=== PATIENT | female | born 1970 | race Hispanic/Latino ===

== ENCOUNTER 2021-06-07 15:01 | Emergency (ER) | payer SELFPAY ==
--- NOTE | 2021-06-07 16:50 | ER ---
Nurse's Notes [facility] Name: Karly Milton Age: 51 yrs Sex: Female : 1970 Arrival Date: 06/07/2021 Time: 15:08 Bed Waiting Private MD: Diagnosis: ED Course: 06/07 15:08 Patient arrived in ED. mr 16:50 Dante Gracia MD is Attending Physician. aa5 Administered Medications: No medications were administered Outcome: 16:50 Patient left the ED. aa5 Signatures: Shelia Castillo Audri, RN RN aa5
== END 2021-06-07 16:50 | disposition left against medical advice (07) ==
LOC: ER 15:01
DX: Z02.9 Encounter for administrative examinations, unspecified (principal)

== ENCOUNTER 2022-08-22 16:04 | Emergency (ER) | payer OTHER ==
--- OUTSIDE RECORDS SUMMARY | 2022-08-22 16:14 | XMS REPORT | Continuity of Care Document ---
:1970 Author Organization [facility] t Address [address] [place] [address] Care Team Providers Name Role Phone SYSTEM, PCP NOT IN Primary Care Physician Unavailable Rocio Petersen MD Attending Clinician ROCIO PETERSEN Attending Clinician Unavailable BRITTANEY HARRIS Attending Clinician Unavailable Therapy, Clc Covid Infusion Attending Clinician Unavailable Brittaney Harris MD Attending Clinician Doctor Unassigned, [place] Attending Clinician Unavailable Payers Payer Name Policy Type Policy Number Effective Date Expiration Date S [employer] [id number] 2017 NON-CONTRACT 00:00:00 GENERIC Problems Condition Condition Condition Status Onset Resolution Last Treating Co mments Source Name Details Category Date Date Treatment Clinician Date Normal Normal Disease Active Univers delivery delivery -14 ity of 00:00: [address] Allergies, Adverse Reactions, Alerts Allergy Allergy Status Severity Reaction(s) Onset Inactive Treating Comm ents Source Name Type Date Date Clinician NO KNOWN Drug Active Univers ALLERGIE Class ity of [facility] Social History Social Habit Start Date Stop Date Quantity Comments Source Exposure to 2022-08-11 2022-08-21 Not sure University SARS-CoV-2 00:00:00 10:02:00 [facility] (event) [place] Tobacco use and 2018-03-12 2018-03-12 Smokeless tobacco Un iversity of exposure 00:00:00 00:00:[address] [facility] Sex Assigned At [birth year] Universit y of 00:00:00 00:00:[address] [facility] Smoking Status Start Date Stop Date Source Never smoked tobacco [facility] Medications Ordered Filled Start Stop Current Ordering Indication Dosage Frequency Signature Comments Components Source Medication Medication Date Date Medication? Clinician (SIG) Name Name ketorolac 2021-10 No 15mg 15 mg, Unive rs (TORADOL) 10-21 Slow IV ity of injection 18:30: 17:46 [place], [place] 15 mg 00 :00 ONCE, 1 Medical dose, On Branch 08/21/22 at 1230, Routine HYDROcodone 2021-10 No 1{tbl} 1 tablet, Univers -acetaminop 10-21 Oral, ity of hen (NORCO 17:00: 16:40 ONCE, 1 [place] 5) 5-325 mg 00 :00 dose, On Medi yareli tablet 1 Fri Branch tablet 08/21/22 at 1100, Routine diphenhydrA 2021-10 No 25mg 25 mg, Uni vers MINE 10-21 Oral, ity of (BENADRYL) 16:15: 16:40 ONCE, 1 [place] tablet 25 00 :00 dose, On Medica l mg Fri Branch 08/21/22 at 1015, MANNY metoclopram 2021-10- No 10mg 10 mg, Uni vers kin HCl 10-21 Slow IV ity of (REGLAN) 16:15: 16:40 [place], [place] injection 00 :00 ONCE, 1 Medical 10 mg dose, On Branch 08/21/22 at 1015, MANNY casirivimab 2020- No [id number] 1200mg 1,200 mg, Univers -imdevimab 06-11 IV ity of 1200 mg in 18:00: 17:00 Infusion, [place] 60 mL NS 00 :00 ONCE, Medical MINI-BAG Administer Branc h over 20 Minutes, 06/11/21 at 1300, For 1 dose
Ad beauty consultant as an IV infusion via pump or gravity through an intravenou s line containing a sterile, in-line or add-on 0.2-micron polyethers ulfone (PES) filter.&nb sp;Stable 36 hours refrigerat ed; 4 hours at room temperatur e. &nbs p;
SULFAMETHOX 2018-0 Yes Take by Uni vers AZOLE/TRIME 6-09 mouth. ity of THOPRIM 18:39: [place] (BACTRIM DS 54 Medical ORAL) Branch doxycycline 2018-0 Yes 100mg Take 100 U nivers (VIBRA-TABS 6-09 mg by ity of ) 100 mg 18:39: mouth 2 [place] tablet 54 (two) Medical times Branch daily. SULFAMETHOX 2018-0 Yes Take by Uni vers AZOLE/TRIME 6-09 mouth. ity of [place] 13:39: [place] (BACTRIM DS 54 Medical ORAL) Branch doxycycline 2018-0 Yes 100mg Take 100 U nivers (VIBRA-TABS 6-09 mg by ity of ) 100 mg 13:39: mouth 2 [place] tablet 54 (two) Medical times Branch daily. SULFAMETHOX 2018-0 Yes Take by Uni vers AZOLE/TRIME 6-09 mouth. ity of THOPRIM 13:39: [place] (BACTRIM DS 54 Medical ORAL) Branch doxycycline 2018-0 Yes 100mg Take 100 U nivers (VIBRA-TABS 6-09 mg by ity of ) 100 mg 13:39: mouth 2 [place] tablet 54 (two) Medical times Branch daily. SULFAMETHOX 2018-0 Yes Take by Uni vers AZOLE/TRIME 6-09 mouth. ity of THOPRIM 13:39: [place] (BACTRIM DS 54 Medical ORAL) Branch doxycycline 2017-0 Yes 100mg Take 100 U nivers (VIBRA-TABS 6-09 mg by ity of ) 100 mg 13:39: mouth 2 [place] tablet 54 (two) Medical times Branch daily. acetaminoph 2018-0 Yes [id number] 10/05 - Univers en-codeine 6-09 tab Every ity of 300-30 mg 00:00: 4hrs as [place] tablet 00 needed for Medical pain or Branch cough requiring narcotic acetaminoph 2018-0 Yes [id number] 10/05 - Univers en-codeine 6-09 tab Every ity of 300-30 mg 00:00: 4hrs as [place] tablet 00 needed for Medical pain or Branch cough requiring narcotic acetaminoph 2018-0 Yes [id number] 10/05 - Univers en-codeine 6-09 tab Every ity of 300-30 mg 00:00: 4hrs as [place] tablet 00 needed for Medical pain or Branch cough requiring narcotic acetaminoph 2018-0 Yes [id number] 10/05 - Univers en-codeine 6-09 tab Every ity of 300-30 mg 00:00: 4hrs as [place] tablet 00 needed for Medical pain or Branch cough requiring narcotic dicyclomine 2018-0 Yes 20mg Take 1 Univ ers (BENTYL) 20 1-30 tablet by ity of mg tablet 00:00: mouth (four) Medical times Branch daily. ondansetron 2018-0 Yes 8mg Take 1 Univ ers (ZOFRAN, 1-30 tablet by ity of HYDROCHLORI 00:00: mouth [place],) 8 mg 00 every 8 Medical tablet (eight) Branch hours as needed for Nausea and Vomiting (N/V). dicyclomine 2018-0 Yes 20mg Take 1 Univ ers (BENTYL) 20 1-30 tablet by ity of mg tablet 00:00: mouth (four) Medical times Branch daily. ondansetron 2018-0 Yes 8mg Take 1 Univ ers (ZOFRAN, 1-30 tablet by ity of HYDROCHLORI 00:00: mouth [place] DE,) 8 mg 00 every 8 Medical tablet (eight) Branch hours as needed for Nausea and Vomiting (N/V). dicyclomine 2018-0 Yes 20mg Take 1 Univ ers (BENTYL) 20 1-30 tablet by ity of mg tablet 00:00: mouth (four) Medical times Branch daily. ondansetron 2018-0 Yes 8mg Take 1 Univ ers (ZOFRAN, 1-30 tablet by ity of HYDROCHLORI 00:00: mouth [place] DE,) 8 mg 00 every 8 Medical tablet (eight) Branch hours as needed for Nausea and Vomiting (N/V). dicyclomine 2018-0 Yes 20mg Take 1 Univ ers (BENTYL) 20 1-30 tablet by ity of mg tablet 00:00: mouth (four) Medical times Branch daily. ondansetron 2018-0 Yes 8mg Take 1 Univ ers (ZOFRAN, 1-30 tablet by ity of HYDROCHLORI 00:00: mouth [place],) 8 mg 00 every 8 Medical tablet (eight) Branch hours as needed for Nausea and Vomiting (N/V). Vital Signs Vital Name Observation Time Observation Value Comments Source Systolic blood 2022-08-21 18:00:00 159 mm[Hg] Univer sity of pressure [place] [facility] Diastolic blood 2022-08-21 18:00:00 84 mm[Hg] Unive rsity of pressure [place] [facility] [place] Heart rate 2022-08-21 18:00:00 64 /min Universi ty of [place] [facility] [place] Respiratory rate 2022-08-21 18:00:00 13 /min Univ ersity of [facility] Oxygen saturation in 2022-08-21 18:00:00 96 /min University of Arterial blood by [facility] Pulse oximetry Branch Body temperature 2022-08-21 16:05:00 37 Kimi [facility] ersity of [place] [facility] [place] Body height 2022-08-21 16:05:00 160 cm Universi ty of [place] [facility] [place] Body weight 2022-08-21 16:05:[address] [facility] BMI 2022-08-21 16:05:00 41.63 kg/m2 Universi ty of [place] [facility] [place] Systolic blood 2021-06-11 17:48:00 123 mm[Hg] Univer sity of pressure [place] [facility] Diastolic blood 2021-06-11 17:48:00 86 mm[Hg] Unive rsity of pressure [place] [facility] [place] Heart rate 2021-06-11 17:48:00 68 /min Universi ty of [place] [facility] [place] Body temperature 2021-06-11 17:48:00 37.67 Kimi [facility] ersity of [place] [facility] [place] Respiratory rate 2021-06-11 17:48:00 20 /min [facility] ersity of [place] [facility] [place] Oxygen saturation in 2021-06-11 17:48:00 95 /min University of Arterial blood by [place] [employer] [facility] Pulse oximetry Branch Body height 2021-06-11 16:36:00 160 cm Universi ty of [place] [facility] Body weight 2021-06-11 16:36:00 104.327 kg Universi ty of [place] [facility] BMI 2021-06-11 16:36:00 40.74 kg/m2 Universi ty of [place] [facility] [place] Procedures Procedure Date / Time Performed Performing Clinician Sourerika e CT HEAD WO CONTRAST 2022-08-21 17:03:00 Rocio Petersen [facility] sit of [facility] CONSENT/REFUSAL FOR 2022-08-21 15:55:24 Doctor Unassigned, No Un [facility]ity of [place] DIAGNOSIS AND Name Medical Branch TREATMENT CONSENT/REFUSAL FOR 2021-06-11 05:01:00 Doctor Unassigned, No Un i[facility]ity of [place] DIAGNOSIS AND Name Medical Branch TREATMENT Encounters Start End Encounter Admission Attending Care Care Encounter Source Date/Time Date/Time Type Type Clinicians Facility Department ID 2022-08-21 2022-08-21 [id number] Univers 10:17:00 13:19:00 Rocio S [place] [id number] i ty [id number] [place] [id number] [facility] 084 Branch 2022-08-21 2022-08-21 [facility] [id number] Univers 10:17:00 13:19:[address] [facility] 2021-06-11 2021-06-11 Outpatient [facility] [id number] Univers 13:30:00 13:30:[id number] [facility] 2021-06-11 2021-06-11 Outpatient R LEONORA [facility] [id number] Univers 13:30:00 13:30:[address] [facility] 2021-06-11 2021-06-11 Nurse Therapy, [facility] Covid Infusion [facility] [id number] Univers 11:35:00 12:35:00 Visit Brittaney Harris [facility] [id number] ity [id number] [id number] [facility] 053 Branch Office Building 2021-06-11 2021-06-11 Orders Doctor AIRAM [id number] Univers 00:00:00 00:00:00 Only Unassigned, MICHAEL [id number] ity of [place] [facility] [id number] [place] [phone] [facility] 009 Branch Results This patient has no known results.
[2022-08-22] MEDS ORDERED: METOCLOPRAMIDE 10 MG/2mL INJ ONE (17:07)
[2022-08-22] MEDS ORDERED: ACETAMINOPHEN 500 MG TAB ONE (17:08)
[2022-08-22] MEDS ORDERED: DIPHENHYDRAMINE 50 MG/ML VIAL ONE (17:08)
[2022-08-22] MEDS ORDERED: LIDOCAINE VISCOUS 2% SOLN 15 ML UDC ONE (17:09)
[2022-08-22] MEDS ORDERED: MAGNES/ALUMIN/SIMET 30ML UCUP ONE (17:09)
[2022-08-22] MEDS ORDERED: ONDANSETRON 4 MG/2 ML VIAL ONE (18:00)
--- NOTE | 2022-08-22 18:24 | RAD REPORT ---
EXAM DESCRIPTION: CT - Head Brain Wo Cont - 08/22/2022 6:10 pm CLINICAL HISTORY: Headache COMPARISON: None TECHNIQUE: Computed axial tomography of the head was obtained. IV contrast was not requested. All CT scans are performed using dose optimization technique as appropriate and may include automated exposure control or mA/KV adjustment according to patient size. FINDINGS: An intracranial bleed is not seen . The ventricles are normal in caliber. No extra-axial fluid collection is noted. No significant hypodensity within the brain. Empty sella turcica Fluid within the sinuses/ mastoids is not seen. IMPRESSION: No acute intracranial abnormality is seen. If patient's symptoms persist MRI of the bra in would be recommended.
[2022-08-22 18:27] LABS: Absolute Lymphocytes (CBC) 1.7 K/uL (0.7-4.9); Hematocrit 42.1 % (36.0-45.0); Lymphocytes % 13.4 % (15.3-44.8); MPV 11.3 fL (7.6-11.3); RBC Red Blood Cell Count 4.57 M/uL (3.86-4.86)
[2022-08-22 18:55] LABS: Albumin 4.1 g/dL (3.4-5.0); Bilirubin Total 0.4 mg/dL (0.2-1.0); Potassium 3.5 mmol/L (3.5-5.1); Protein, Total 7.8 g/dL (6.4-8.2); Troponin High Sensitivity 5.7 pg/mL (<58.9)
[2022-08-22 19:57] LABS: Urine Blood Negative (Negative); Urine Glucose Negative (Negative); Urine Protein Negative (Negative); Urine Specific Gravity 1.025 (1.005-1.030)
[2022-08-22 20:30] LABS: Urine Crystals Unidentified Few /HPF (None Seen); Urine Mucus 1+ /HPF (None Seen); Urine RBC <5 /HPF (None Seen)
--- NOTE | 2022-08-22 20:45 | ER ---
Nurse's Notes [facility] [place] Name: Karly Milton Age: 52 yrs Sex: Female : 1970 Arrival Date: 08/22/2022 Time: 16:09 Bed 9 Private MD: Diagnosis: Headache;Nausea with vomiting, unspecified Presentation: 08/22 16:12 Chief complaint: N/V, sore throat, and headache x 1 week. Not tolerating fluids. hb Coronavirus screen: Client presents with at least one sign or symptom that may indicate coronavirus-19. Standard/surgical mask placed on the client. Provider contacted for isolation considerations. Ebola Screen: No symptoms or risks identified at this time. Initial Sepsis Screen: Does the patient meet any 2 criteria? No. Patient's initial sepsis screen is negative. Does the patient have a suspected source of infection? No. Patient's initial sepsis screen is negative. Risk Assessment: Do you want to hurt yourself or someone else? Patient reports no desire to harm self or others. Onset of symptoms was August 16, 2022. 16:12 Method Of Arrival: Ambulatory 16:12 Acuity: ROHITH 3 hb CREDIT HISTORIAN: 21:26 LMP N/A - Post-menopause eh3 Historical: - Allergies: 16:14 No Known Allergies; hb - Immunization history:: Adult Immunizations up to date. - Family history:: not pertinent. - Social history:: Smoking status: Patient denies any tobacco usage or history of. Screenin:00 Abuse screen: Denies threats or abuse. Denies injuries from another. Nutritional eh3 screening: No deficits noted. Tuberculosis screening: No symptoms or risk factors identified. Fall Risk None identified. Assessment: 17:00 General: Appears distressed, uncomfortable, Behavior is cooperative, appropriate for eh3 age, crying. Pain: Complains of pain in top of head and right yazdanism Pain does not radiate. Pain currently is 9 out of 10 on a pain scale. Quality of pain is described as aching, sharp, Pain began 1 week ago Is continuous, Alleviated by nothing. Neuro: Level of Consciousness is awake, alert, obeys commands, Oriented to person, place, time, situation. Cardiovascular: Capillary refill < 3 seconds Patient's skin is warm and dry. Respiratory: Airway is patent Respiratory effort is even, unlabored, Respiratory pattern is regular, symmetrical. GI: Abdomen is round Pt is actively vomiting bile, Bowel sounds present X 4 quads. Reports lower abdominal pain, upper abdominal pain, cramping, intolerance of fluids, intolerance of food, nausea, vomiting. : No signs and/or symptoms were reported regarding the genitourinary system. EENT: No signs and/or symptoms were reported regarding the EENT system. Derm: No signs and/or symptoms reported regarding the dermatologic system. Musculoskeletal: No signs and/or symptoms reported regarding the musculoskeletal system. 18:00 Reassessment: Patient and/or family updated on plan of care and expected duration. Pain eh3 level reassessed. Patient is alert, oriented x 3, equal unlabored respirations, skin warm/dry/pink. 19:00 Reassessment: Patient and/or family updated on plan of care and expected duration. Pain eh3 level reassessed. Patient is alert, oriented x 3, equal unlabored respirations, skin warm/dry/pink. 20:00 Reassessment: Patient and/or family updated on plan of care and expected duration. Pain hb level reassessed. Patient is alert, oriented x 3, equal unlabored respirations, skin warm/dry/pink. 21:00 Reassessment: Patient and/or family updated on plan of care and expected duration. Pain eh3 level reassessed. Patient is alert, oriented x 3, equal unlabored respirations, skin warm/dry/pink. Vital Signs: 16:12 BP 173 / 115; Pulse 98; Resp 18; Temp 98.4; Pulse Ox 100% on R/A; Weight 106.59 kg; hb Height 5 ft. 3 in. (160.02 cm); Pain 8/10; 18:00 BP 144 / 89; Pulse 94; Resp 18; Pulse Ox 99% on R/A; eh3 19:00 BP 133 / 71; Pulse 92; Resp 18; Pulse Ox 98% on R/A; eh3 20:00 BP 134 / 80; Pulse 80; Resp 18; Pulse Ox 97% on R/A; hb 21:00 BP 134 / 78; Pulse 84; Resp 16; Pulse Ox 98% on R/A; eh3 16:12 Body Mass Index 41.63 (106.59 kg, 160.02 cm) hb ED Course: 16:09 Patient arrived in ED. [email or web address] 16:09 Deyvi Hernandez MD is Attending Physician. rt 16:14 Triage completed. hb 16:46 Bhavna Viveros, KIP is Primary Nurse. eh3 17:00 Patient has correct armband on for positive identification. Bed in low position. Call eh3 light in reach. Side rails up X2. youth nutritional monitor on. Pulse ox on. Door closed. Noise minimized. Warm blanket given. 17:55 Troponin High Sensitivity Sent. eh3 17:55 CMP Sent. eh3 17:55 Lipase Sent. eh3 17:55 CBC with Diff Sent. eh3 18:12 CT Head Brain wo Cont In Process Unspecified. EDMS 20:28 Attending Physician role handed off by Deyvi Hernandez MD sd2 20:28 Ramandeep Cueva MD is Attending Physician. sd2 20:48 Diet: Patient given water. Tolerated well. hb 21:26 No provider procedures requiring assistance completed. IV discontinued, intact, eh3 bleeding controlled, No redness/swelling at site. Pressure dressing applied. 21:26 Arm band placed on. eh3 Administered Medications: 17:35 Drug: Reglan (metoCLOPramide) 10 mg Route: IVP; Site: left antecubital; eh3 20:35 Follow up: Response: Nausea unchanged hb 17:35 Drug: Benadryl (diphenhydrAMINE) 25 mg Route: IVP; Site: left antecubital; eh3 20:35 Follow up: Response: No adverse reaction hb 17:35 Drug: GI Cocktail without - (Maalox Suspension 30 ml, Lidocaine Liquid 2 % 15 eh3 ml) Route: PO; 20:34 Follow up: Response: No adverse reaction hb 18:04 Drug: Zofran (Ondansetron) 4 mg Route: IVP; Site: left antecubital; eh3 21:06 Follow up: Response: Nausea unchanged hb 19:53 Drug: Tylenol 1000 mg Route: PO; eh3 21:06 Follow up: Response: No adverse reaction hb 21:00 Drug: Ketorolac 15 mg Route: IVP; Site: left antecubital; hb 21:27 Follow up: Response: Pain is decreased eh3 21:00 Drug: Decadron - Dexamethasone 10 mg Route: IVP; Site: left antecubital; hb 21:27 Follow up: Response: Pain is decreased eh3 Medication: 21:26 VIS not applicable for this client. eh3 Outcome: 20:45 Discharge ordered by . sd2 21:26 Discharged to home ambulatory, with family. eh3 21:26 Condition: stable 21:26 Discharge instructions given to patient, family, Instructed on discharge instructions, follow up and referral plans. medication usage, Demonstrated understanding of instructions, follow-up care, medications, Prescriptions given X 2. 21:26 Patient left the ED. eh3 Signatures: Dispatcher [employer] EDMS Mar Pulliam, RN RN Kasey Henrandez rg4 Bhavna Viveros RN RN eh3 Ramandeep Cueva MD MD sd2 Deyvi Hernandez MD MD rt
--- NOTE | 2022-08-22 20:45 | EDPHYS ---
Physician Documentation [facility] Name: Karly Milton Age: 52 yrs Sex: Female : 1970 Arrival Date: 08/22/2022 Time: 16:09 Bed 9 Private MD: ED Physician Ramandeep Cueva HPI: 08/22 16:26 This 52 yrs old Female presents to ER via Ambulatory with complaints of rt Nausea/Vomiting, Headache. 16:26 Onset: The symptoms/episode began/occurred 1 week(s) ago. The symptoms are aggravated rt by nothing. The symptoms are alleviated by nothing. Associated signs and symptoms: Pertinent negatives: abdominal pain. Severity of symptoms: At their worst the symptoms were moderate. Presents to the ED with posterior headache that started about 1 week ago. She states that this occurred after she fell and hit her head. She has a constant pain since then, aching nature, nonradiating. Denies aggravating or alleviating factors. She states that ibuprofen did not improve her symptoms. The patient went to her doctor today, stated that she was hypertensive, gave her captopril. She has not received work-up for this. Today, she developed nausea, vomiting, multiple episodes, nonbloody, nonbilious. She states that she has a sore throat secondary to the vomiting.. DIVE MASTER: 21:26 LMP N/A - Post-menopause eh3 Historical: - Allergies: 16:14 No Known Allergies; hb - Immunization history:: Adult Immunizations up to date. - Family history:: not pertinent. - Social history:: Smoking status: Patient denies any tobacco usage or history of. ROS: 16:26 Constitutional: Negative for fever, chills, and weight loss, Eyes: Negative for injury, rt pain, redness, and discharge. 16:26 Neck: Negative for injury, pain, and swelling, Cardiovascular: Negative for chest pain, palpitations, and edema, Respiratory: Negative for shortness of breath, cough, wheezing, and pleuritic chest pain, MS/Extremity: Negative for injury and deformity, Skin: Negative for injury, rash, and discoloration, Psych: Negative for depression, anxiety, suicide ideation, homicidal ideation, and hallucinations. 16:26 ENT: Positive for sore throat, Negative for sinus congestion. 16:26 Abdomen/GI: Positive for nausea and vomiting, Negative for abdominal pain. 16:26 Neuro: Positive for headache, Negative for altered mental status. Exam: 16:26 Constitutional: This is a well developed, well nourished patient who is awake, alert, rt and in no acute distress. Head/Face: Normocephalic, atraumatic. Eyes: Pupils equal round and reactive to light, extra-ocular motions intact. Lids and lashes normal. Conjunctiva and sclera are non-icteric and not injected. Cornea within normal limits. Periorbital areas with no swelling, redness, or edema. ENT: Nares patent. No nasal discharge, no septal abnormalities noted. Tympanic membranes are normal and external auditory canals are clear. Oropharynx with no redness, swelling, or masses, exudates, or evidence of obstruction, uvula midline. Mucous membranes moist. Neck: Trachea midline, no thyromegaly or masses palpated, and no cervical lymphadenopathy. Supple, full range of motion without nuchal rigidity, or vertebral point tenderness. No Meningismus. Chest/axilla: Normal chest wall appearance and motion. Nontender with no deformity. No lesions are appreciated. Cardiovascular: Regular rate and rhythm with a normal S1 and S2. No gallops, murmurs, or rubs. Normal PMI, no JVD. No pulse deficits. Respiratory: Lungs have equal breath sounds bilaterally, clear to auscultation and percussion. No rales, rhonchi or wheezes noted. No increased work of breathing, no retractions or nasal flaring. Abdomen/GI: Soft, non-tender, with normal bowel sounds. No distension or tympany. No guarding or rebound. No evidence of tenderness throughout. Skin: Warm, dry with normal turgor. Normal color with no rashes, no lesions, and no evidence of cellulitis. MS/ Extremity: Pulses equal, no cyanosis. Neurovascular intact. Full, normal range of motion. Neuro: Awake and alert, GCS 15, oriented to person, place, time, and situation. Cranial nerves II-XII grossly intact. Motor strength 5/5 in all extremities. Sensory grossly intact. Cerebellar exam normal. Normal gait. Psych: Awake, alert, with orientation to person, place and time. Behavior, mood, and affect are within normal limits. 17:11 ECG was reviewed by the Attending Physician. rt Vital Signs: 16:12 BP 173 / 115; Pulse 98; Resp 18; Temp 98.4; Pulse Ox 100% on R/A; Weight 106.59 kg; hb Height 5 ft. 3 in. (160.02 cm); Pain 8/10; 18:00 BP 144 / 89; Pulse 94; Resp 18; Pulse Ox 99% on R/A; eh3 19:00 BP 133 / 71; Pulse 92; Resp 18; Pulse Ox 98% on R/A; eh3 20:00 BP 134 / 80; Pulse 80; Resp 18; Pulse Ox 97% on R/A; hb 21:00 BP 134 / 78; Pulse 84; Resp 16; Pulse Ox 98% on R/A; eh3 16:12 Body Mass Index 41.63 (106.59 kg, 160.02 cm) hb MDM: 16:16 Patient medically screened. rt 20:43 Transition of care: Care assumed from Deyvi Hernandez MD. ED course: Urine reviewed sd2 with no signs of infection. labs and imaging otherwise grossly WNCL. Pt re-evaluated and feeling improved. No focal neuro deficits. Head pain may be sequela from recent head injury. Nausea and vomiting improved. Unclear if this is related to head injury or possible viral syndrome as it just recently started and may not be related. Pt advised of continued supportive care for symptoms and need for outpatient follow up with her PCP next week. She verbalizes understanding of discharge plan and strict return precautions.. 08/22 16:26 Order name: CBC with Diff; Complete Time: 18:58 rt 08/22 16:26 Order name: CMP; Complete Time: 18:58 rt 08/22 16:26 Order name: Lipase; Complete Time: 18:58 rt 08/22 16:26 Order name: Troponin High Sensitivity; Complete Time: 18:58 rt 08/22 17:06 Order name: UA MICROSCOPIC; Complete Time: 20:30 rt 08/22 19:58 Order name: Urine Dipstick-Ancillary; Complete Time: 20:00 EDMS 08/22 16:26 Order name: CT Head Brain wo Cont; Complete Time: 18:25 rt 08/22 16:26 Order name: EKG; Complete Time: 16:26 rt 08/22 16:26 Order name: EKG - Nurse/Tech; Complete Time: 17:05 rt 08/22 17:06 Order name: Urine Dipstick-Ancillary (obtain specimen); Complete Time: 19:52 rt 08/22 20:13 Order name: PO challenge; Complete Time: 20:48 sd2 EC:11 Rate is 87 beats/min. Rhythm is regular, Normal Sinus Rhythm with No ectopy. NH rt interval is normal. QRS interval is normal. QT interval is normal. No Q waves. No ST changes noted. Administered Medications: 17:35 Drug: Reglan (metoCLOPramide) 10 mg Route: IVP; Site: left antecubital; eh3 20:35 Follow up: Response: Nausea unchanged hb 17:35 Drug: Benadryl (diphenhydrAMINE) 25 mg Route: IVP; Site: left antecubital; eh3 20:35 Follow up: Response: No adverse reaction hb 17:35 Drug: GI Cocktail without - (Maalox Suspension 30 ml, Lidocaine Liquid 2 % 15 eh3 ml) Route: PO; 20:34 Follow up: Response: No adverse reaction hb 18:04 Drug: Zofran (Ondansetron) 4 mg Route: IVP; Site: left antecubital; eh3 21:06 Follow up: Response: Nausea unchanged hb 19:53 Drug: Tylenol 1000 mg Route: PO; eh3 21:06 Follow up: Response: No adverse reaction hb 21:00 Drug: Ketorolac 15 mg Route: IVP; Site: left antecubital; hb 21:27 Follow up: Response: Pain is decreased eh3 21:00 Drug: Decadron - Dexamethasone 10 mg Route: IVP; Site: left antecubital; hb 21:27 Follow up: Response: Pain is decreased eh3 Disposition Summary: 08/22/22 20:45 Discharge Ordered Location: Home sd2 Problem: new sd2 Symptoms: have improved sd2 Condition: Stable sd2 Diagnosis - Headache sd2 - Nausea with vomiting, unspecified sd2 Followup: sd2 - With: Private Physician - When: 2 - 3 days - Reason: Recheck today's complaints, Continuance of care, Re-evaluation by your physician Discharge Instructions: - Discharge Summary Sheet sd2 - General Headache Without Cause sd2 - Nausea and Vomiting, Adult sd2 - Post-Concussion Syndrome sd2 Forms: - Medication Reconciliation Form sd2 - Thank You Letter sd2 - Antibiotic Education sd2 - Prescription Opioid Use sd2 Prescriptions: - Fioricet 50-300-40 mg Oral capsule - take 1 capsule by ORAL route every 6 hours As needed as needed for headache sd2 unimproved with other medications only; 15 capsule; Refills: 0, Product Selection Permitted - ondansetron 8 mg Oral tablet,disintegrating - take 1 tablet by ORAL route every 8 hours As needed; 15 tablet; Refills: 0, sd2 Product Selection Permitted Signatures: Dispatcher [employer] EDPR Mar Pulliam RN RN Bhavna Viveros RN RN 3 Ramandeep Cueva MD MD sd2 Deyvi Hernandez MD MD rt
[2022-08-22] MEDS ORDERED: dexAMETHasone 10 MG/ML VIAL ONE (20:51)
[2022-08-22] MEDS ORDERED: KETOROLAC 30 MG/ML INJ ONE (20:51)
[2022-08-22 21:40] VITALS: TEMP 98.4
[2022-08-22 21:54] VITALS: BP 134/78; O2SAT 98
--- NOTE | 2022-08-24 15:33 | EKG ---
Test Date: 2022-08-22 Test Time: 17:01:17 Carry Out Clerk: ZAHRA MEASUREMENT RESULTS: Intervals: Rate: 87 IN: 144 QRSD: 68 QT: 348 QTc: 418 [place]: P: 37 IN: 144 QRS: 12 T: 14 INTERPRETIVE STATEMENTS: Normal sinus rhythm Cannot rule out Anterior infarct, age undetermined Abnormal ECG No previous ECG available for comparison Electronically Signed On 08-24-22 15:30:10 CERTIFIED GENETIC COUNSELOR by Tim Sandoval
== END 2022-08-22 21:26 | disposition home or self-care (01) ==
LOC: ER 16:04
DX: R51.9 Headache, unspecified (principal); R11.2 Nausea with vomiting, unspecified
CPT/HCPCS: 93005; 85025; 36415; 84484; 83690; 80053; 70450; 96375; 96374; 99284; J2765; J1200; J1100; J2405; 81003; 81015